=== PATIENT | female | born 1960 | race African-American/Black ===

== ENCOUNTER → 2017-05-05 | Outpatient (CLI) | payer OTHER ==
[~2017-05-05] VITALS: Ht 162.6 cm; Wt 87.1 kg
[~2017-05-05] MED LIST: COLACE100 MG PO; METFORMIN HCL1000 M1 PO; METFORMIN HCL500 MG PO; NAPROSYN500 MG PO; PERCOCET 5/31 TABLET PO; PHENERGAN25 MG PR; PHENTERMINE HCL15 MG PO; PRINIVIL5 MG PO; VALIUM5 MG PO; ZOFRAN4 MG PO; [UNRECOGNIZED DRUG - OTHER] PO
== END | disposition home or self-care (01) ==
LOC: AMB 04-14 12:00 → OPR 04-14 15:30 → AMB 12:00
DX: R74.8 Abnormal levels of other serum enzymes (principal); R17 Unspecified jaundice; N72 Inflammatory disease of cervix uteri; E66.9 Obesity, unspecified; Z68.33 Body mass index [BMI] 33.0-33.9, adult; Z87.891 Personal history of nicotine dependence
CPT/HCPCS: 88307; 88313; C1726; J2250; J3010